=== PATIENT | male | born 1965 | race Caucasian/White ===

== ENCOUNTER 2019-07-18 23:12 | Emergency (ER) | payer SELFPAY ==
[~2019-07-18] VITALS: Ht 175.3 cm; Wt 81.6 kg
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
[2019-07-19] MEDS ORDERED: Albuterol/Ipratropium 3ml neb HHN ONE (01:00)
[2019-07-19] MEDS ORDERED: HYDROcodone/Acetamin 5/325 tab ORAL ONE (01:00)
[2019-07-19 03:15] VITALS: BP 149/72
[2019-07-19] MEDS ORDERED: ACETAMINOPHEN500 M3 ORAL (03:35)
[2019-07-19] MEDS ORDERED: CYCLOBENZAPRINE10 MG ORAL (03:35)
--- NOTE | 2019-07-19 03:41 | Diagnostic Imaging Report ---
Indication: Abdominal pain. Trauma Technique: Continuous helical transaxial imaging of the abdomen and pelvis was obtained from the lung bases to the pubic symphysis. No intravenous contrast was administered. Coronal 2-D reformats were also obtained. Automatic Exposure Control was utilized. Total Dose length Product (DLP): 850.[address] Dose Index Volume (CTDIvol): 15.91 mGy Comparison: none Findings: Lung bases are clear. Noncontrast solid organ evaluation is negative. There is mild perinephric stranding which is nonspecific. The left kidney is malrotated. Gallbladder contracted. Aorta is moderately calcified. Urinary bladder is slightly dense which may reflect hematuria please correlate clinically. There is a small left inguinal hernia containing fat. There is no free fluid. Bowel gas pattern is nonobstructive. IMPRESSION: Slightly dense bladder. Correlate for hematuria. No obvious acute injury identified otherwise. Limited study due to the nonadministration of IV contrast. [facility] has communicated the preliminary results to the Emergency Department. Their findings are largely concordant with this report. The CT scanner at [facility] is accredited by the [employer] and the scans are performed using dose optimization techniques as appropriate to a performed exam including Automatic Exposure control.
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
--- NOTE | 2019-07-19 03:45 | NUR ---
ER DISCHARGE NOTE: Patient is cleared to be discharged per ERMD, pt is aox4, on room air, with stable vital signs. pt was given dc and prescription instructions, pt was able to verbalize understanding, pt id band removed without complications. pt is able to ambulate with steady gait. pt took all belongings.
[2019-07-19 03:55] VITALS: BP 149/72
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
== END 2019-07-19 03:55 | disposition home or self-care (01) ==
LOC: EMR 07-19 00:30
DX: S16.1XXA Strain of muscle, fascia and tendon at neck level, initial encounter (principal); S39.012A Strain of muscle, fascia and tendon of lower back, initial encounter; E78.00 Pure hypercholesterolemia, unspecified; I10 Essential (primary) hypertension; Z88.8 Allergy status to other drugs, medicaments and biological substances; V43.52XA Car driver injured in collision with other type car in traffic accident, initial encounter; Y92.410 Unspecified street and highway as the place of occurrence of the external cause
CPT/HCPCS: 72125; 74176; 94640; 94664; 99283; J7620

== ENCOUNTER 2020-06-19 22:15 | Emergency (ER) | payer MEDICAID, OTHER ==
[~2020-06-19] VITALS: Ht 175.3 cm; Wt 81.6 kg
[~2020-06-19 22:15] MED LIST: ACETAMINOPHEN500 M3 ORAL; CYCLOBENZAPRINE10 MG ORAL
[2020-06-19] MEDS ORDERED: METOPROLOL SUC100 MG ORAL (22:36)
[2020-06-19] MEDS ORDERED: FUROSEMIDE40 MG ORAL (22:36)
--- NOTE | 2020-06-19 22:40 | NUR ---
ED Nurse Note: Pt ambulated to ED from home c/o 9/10 lower back pain with dysuria x1 week as well as N and weakness, denies fever. Hx of HTN, was told his kidneys were "shutting down" by previous dr. MEJIA. 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
[2020-06-19] MEDS ORDERED: Morphine Sulfate 2mg/ml Inj(IV/IM USE ONLY) IVP ONE (22:45)
--- NOTE | 2020-06-19 22:48 | Emergency Room Report ---
History of Present Illness General Chief Complaint: Back Pain-No Injury Source: Patient Present Illness HPI Disclaimer: Please note that this report is being documented using DRAGON technology. This can lead to erroneous entry secondary to incorrect interpretation by the dictating instrument. HPI: 54-year-old male history of kidney stone, prior pyelonephritis presents for evaluation of left-sided flank pain. Symptoms present 1 week. He notes an aching over the left side of the lower back sometimes rating to the left lower abdomen. Denies vomiting, diarrhea. Reports some dysuria and ureteric hesitancy. Denies urgency or frequency. Denies hematuria, fever, chills. No fall or injury. Denies midline back pain. 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 EOMI. Cardiovascular: RRR. S1 and S2 normal. No murmur appreciated Resp: Normal work of breathing. No cough, wheezing or crackles appreciated Abdomen: Abdomen is soft, nondistended. Nontender Skin: Intact. No abrasions, laceration or rash over the exposed skin MSK: Normal tone and bulk. Moving all extremities. No obvious deformity. Neuro: Awake and alert. Mentating appropriately. Back: Mild left-sided flank pain on percussion over the CVA. No tenderness in the midline in the thoracic or lumbosacral spine, no step-off, no deformities. Medical Decision Making Diagnostic Impression: Primary Impression: Flank pain Additional Impression: Lumbar disc disease ER Course 54-year-old male presents for evaluation of 1 week left-sided flank pain and dysuria. Concern for UTI, pyelonephritis, nephrolithiasis, back spasm, ligamentous strain. Overall well-appearing with stable vital signs. Labs were obtained showing normal renal function, no white count, no evidence of an acute urinary tract infection though will send urine for culture. Patient was sent for noncontrast CT to evaluate for kidney stones and returned negative. There was lumbar disc disease but no acute findings. Believe the patient likely experiencing musculoskeletal strain. Will treat with NSAIDs, Robaxin, lidocaine patch. He will be referred to his PMD. He also reports the urinary retention has been ongoing though intermittent. He will follow-up with urology through his PMD. No evidence of obstruction at this time. Will discharge with outpatient follow-up. Instructed to return with new or worsening symptoms. He understands and agrees with this treatment plan. Laboratory Tests Test 06/19/20 22:45 06/20/20 00:15 White Blood Count 11.2 K/UL (4.8-10.8) H Red Blood Count 5.13 M/UL (4.70-6.10) Hemoglobin 16.1 G/DL (14.2-18.0) Hematocrit 46.6 % (42.0-52.0) Mean Corpuscular Volume 91 FL (80-99) Mean Corpuscular Hemoglobin 31.4 PG (27.0-31.0) H Mean Corpuscular Hemoglobin Concent 34.6 G/DL (32.0-36.0) Red Cell Distribution Width 12.7 % (11.6-14.8) Platelet Count 384 K/UL (150-450) Mean Platelet Volume 8.0 FL (6.5-10.1) Neutrophils (%) (Auto) 47.7 % (45.0-75.0) Lymphocytes (%) (Auto) 42.1 % (20.0-45.0) Monocytes (%) (Auto) 7.1 % (1.0-10.0) Eosinophils (%) (Auto) 1.4 % (0.0-3.0) Basophils (%) (Auto) 1.7 % (0.0-2.0) Sodium Level 139 MMOL/L (136-145) Potassium Level 4.0 MMOL/L (3.5-5.1) Chloride Level 102 MMOL/L (98-107) Carbon Dioxide Level 33 MMOL/L (21-32) H Anion Gap 4 mmol/L (5-15) L Blood Urea Nitrogen 14 mg/dL (7-18) Creatinine 1.2 MG/DL (0.55-1.30) Estimated Glomerular Filtration Rate > 60 mL/min (>60) Glucose Level 92 MG/DL (74-106) Calcium Level 9.2 MG/DL (8.5-10.1) Urine Color Yellow Urine Appearance Clear Urine pH 6.5 (4.5-8.0) Urine Specific [place] 1.015 (1.005-1.035) Urine Protein 2+ (NEGATIVE) H Urine Glucose (UA) Negative (NEGATIVE) Urine Ketones Negative (NEGATIVE) Urine Blood 2+ (NEGATIVE) H Urine Nitrite Negative (NEGATIVE) Urine Bilirubin Negative (NEGATIVE) Urine Urobilinogen 1 MG/DL (0.0-1.0) H Urine Leukocyte Esterase 1+ (NEGATIVE) H Urine RBC 2-4 /HPF (0 - 0) H Urine WBC 0-2 /HPF (0 - 0) Urine Squamous Epithelial Cells None /LPF (NONE/OCC) Urine Bacteria Few /HPF (NONE) CT/MRI/US Diagnostic Results CT/MRI/US Diagnostic Results : Impression CT ABDOMEN PELVIS WITHOUT CONTRAST IMPRESSION: 1. Lumbar spinal degenerative change, worst at L4-5 where diffuse disc bulge likely results in some degree of spinal canal stenosis. 2. Otherwise negative noncontrast abdomen and pelvis CT. No specific findings to explain flank pain. Radiologist: Madhu Alva MD Electronically Signed: 06/20/20 00:54 Study ready at 00:43 and initial results transmitted at 00:54 Last Vital Signs Date Time Temp Pulse Resp B/P (MAP) Pulse Ox O2 Delivery O2 Flow Rate FiO2 06/19/20 22:30 98.4 68 18 176/100 (125) 96 Room Air Disposition: HOME, SELF-CARE Condition: Stable Scripts Lidocaine Patch* (Lidoderm Patch*) 1 Each Adh..patch 1 PATCH TOPIC DAILY, #7 PATCH 0 Refills Patch(es) may remain in place for up to 12 hours in any 24-hour period. Prov: Bobby Arana MD 06/20/20 Methocarbamol* (ROBAXIN-750*) 750 Mg Tablet 750 MG PO TID, #21 TAB 0 Refills Prov: Bobby Arana MD 06/20/20 Ibuprofen* (MOTRIN*) 600 Mg Tablet 600 MG ORAL Q8H PRN for FOR PAIN, #30 TAB 0 Refills Prov: Bobby Arana MD 06/20/20 Referrals: NON PHYSICIAN (PCP) Bobby Arana MD Jun 19, 2020 22:48
[2020-06-19 22:53] VITALS: BP 176/100
[2020-06-19 23:12] LABS: ANION GAP 4 mmol/L (5-15); BLOOD UREA NITROGEN 14 mg/dL (7-18); CALCIUM 9.2 MG/DL (8.5-10.1); CARBON DIOXIDE 33 MMOL/L (21-32); CHLORIDE 102 MMOL/L (98-107); CREATININE 1.2 MG/DL (0.55-1.30); SODIUM 139 MMOL/L (136-145)
[2020-06-19 23:13] LABS: BASOPHILS % (AUTO) 1.7 % (0.0-2.0); EOSINOPHILS % (AUTO) 1.4 % (0.0-3.0); HEMATOCRIT 46.6 % (42.0-52.0); HEMOGLOBIN 16.1 G/DL (14.2-18.0); LYMPHOCYTES % (AUTO) 42.1 % (20.0-45.0); MEAN CORPUSCULAR VOLUME 91 FL (80-99); MONOCYTES % (AUTO) 7.1 % (1.0-10.0); NEUTROPHILS % (AUTO) 47.7 % (45.0-75.0); PLATELET COUNT 384 K/UL (150-450); RED BLOOD COUNT 5.13 M/UL (4.70-6.10); RED CELL DISTRIBUTION WIDTH 12.7 % (11.6-14.8); WHITE BLOOD COUNT 11.2 K/UL (4.8-10.8)
--- NOTE | 2020-06-20 00:20 | NUR ---
ED Nurse Note: Pt to CT
[2020-06-20 00:28] LABS: APPEARANCE,URINE CLEAR; BILIRUBIN, URINE NEGATIVE (NEGATIVE); GLUCOSE, URINE (UA) NEGATIVE (NEGATIVE); KETONES,URINE NEGATIVE (NEGATIVE); LEUKOCYTE ESTERASE ,URINE 1+ (NEGATIVE); NITRITE,URINE NEGATIVE (NEGATIVE); PH,URINE 6.5 (4.5-8.0); PROTEIN,URINE 2+ (NEGATIVE); UROBILINOGEN,URINE 1 MG/DL (0.0-1.0)
[2020-06-20 00:41] LABS: COLOR,URINE YELLOW
--- NOTE | 2020-06-20 00:55 | Diagnostic Imaging Report ---
EXAM: CT Abdomen and Pelvis Without Intravenous Contrast CLINICAL HISTORY: Back pain TECHNIQUE: Axial computed tomography images of the abdomen and pelvis without intravenous contrast. CTDI is 6.7 mGy and DLP is 350.1 mGy-cm. One or more of the following dose reduction techniques were used: automated exposure control, adjustment of the mA and/or kV according to patient size, use of iterative reconstruction technique. COMPARISON: 07/19/[address] without IV contrast FINDINGS: Lung bases: Unremarkable. No mass. No consolidation. ABDOMEN: Liver: Unremarkable. Gallbladder and bile ducts: Unremarkable. No calcified stones. No ductal dilation. Pancreas: Unremarkable. No ductal dilation. Spleen: Unremarkable. No splenomegaly. 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 Normal left adrenal gland. Kidneys and ureters: No radiopaque stones in either kidney and no evidence of hydronephrosis or hydroureter. Stomach and bowel: Unremarkable. No obstruction. No mucosal thickening. PELVIS: Appendix: No findings to suggest acute appendicitis. Bladder: The bladder is unremarkable. No stones. Reproductive: Unremarkable as visualized. ABDOMEN and PELVIS: Intraperitoneal space: Unremarkable. No free air. No significant fluid collection. Bones/joints: Diffuse disc bulge at L4-L5 with a partially lumbarized S1 noted. This likely contributing some degree of central canal narrowing and bilateral foraminal narrowing due to ligamentum flavum thickening and mild facet degenerative change. No acute fracture. No dislocation. Soft tissues: Unremarkable. Vasculature: Scattered calcifications in the normal caliber abdominal aorta. No abdominal aortic aneurysm. Lymph nodes: Unremarkable. No enlarged lymph nodes. IMPRESSION: 1. Lumbar spinal degenerative change, worst at L4-5 where diffuse disc bulge likely results in some degree of spinal canal stenosis. 2. Otherwise negative noncontrast abdomen and pelvis CT. No specific findings to explain flank pain.
[2020-06-20] MEDS ORDERED: IBUPROFEN600 M1 ORAL (01:02)
[2020-06-20] MEDS ORDERED: ROBAXIN-750750 MG PO (01:02)
[2020-06-20] MEDS ORDERED: LIDODERM700 M1 TOPIC (01:02)
[2020-06-20 01:15] VITALS: BP 152/89
--- NOTE | 2020-06-20 01:15 | NUR ---
ER DISCHARGE NOTE: Patient is cleared to be discharged per ERMD, pt is aox4, on room air, with stable vital signs. pt was given dc and prescription instructions, pt was able to verbalize understanding, pt id band and iv site removed without complications. pt is able to ambulate with steady gait. pt took all belongings.
== END 2020-06-20 01:15 | disposition home or self-care (01) ==
LOC: EMR 22:42
DX: R10.9 Unspecified abdominal pain (principal); M51.36 Other intervertebral disc degeneration, lumbar region; Z87.442 Personal history of urinary calculi; I10 Essential (primary) hypertension; E78.00 Pure hypercholesterolemia, unspecified
CPT/HCPCS: 36415; 74176; 80048; 81003; 85025; 87086; 96361; 96374; J2270; Z7502; 99284